=== PATIENT | male | born 1960 | race African-American/Black ===

== ENCOUNTER 2019-04-22 10:26 | Inpatient (IN) | payer OTHER ==
[2019-04-22 11:21] VITALS: BMI 28.3
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
[2019-04-22] MEDS ORDERED: IBUPROFEN 400 MG TABLET (FP) PO PRN (12:10)
[2019-04-22] MEDS ORDERED: MAGNESIUM HYDROX 2400MG/30ML ORAL SUSPENSION 30 ML CUP PO PRN (12:10)
[2019-04-22] MEDS ORDERED: MAG HYDROX/AL HYDROX/SIMETH 30 ML UNIT-DOSE CUP PO PRN (12:10)
[2019-04-22] MEDS ORDERED: ACETAMINOPHEN 325 MG TABLET (FP) PO PRN (12:10)
[2019-04-22] MEDS ORDERED: METHOCARBAMOL 500 MG TABLET PO PRN (12:10)
[2019-04-22] MEDS ORDERED: BISMUTH SUBSALICYLATE 524 MG/30 ML UD PO PRN (12:10)
[2019-04-22] MEDS ORDERED: hydrOXYzine PAMOATE 25 MG CAPSULE (FP) PO PRN (12:10)
[2019-04-22] MEDS ORDERED: MAGNESIUM CITRATE 300 ML BOTTLE PO PRN (12:10)
[2019-04-22] MEDS ORDERED: chlordiazePOXIDE HCL 25 MG CAPSULE PO PRN (12:10)
[2019-04-22] MEDS ORDERED: MENTHOL/PHENOL 1 EACH UD MM PRN (12:10)
[2019-04-22] MEDS ORDERED: ALBUTEROL SO4 8 GM HFA INHALER IH PRN (12:15)
[2019-04-22] MEDS ORDERED: chlordiazePOXIDE HCL 25 MG CAPSULE PO ONE (13:00)
[2019-04-22] MEDS: amLODIPine BESYLATE 10 MG TABLET (FP) PO SCH (13:31)
[2019-04-22] MEDS: chlordiazePOXIDE HCL 25 MG CAPSULE PO SCH ×2 (17:34→22:37)
[2019-04-22] MEDS: ATORVASTATIN CA 10 MG TABLET (FP) PO SCH (22:36)
[2019-04-22] MEDS: THIAMINE HCL 100 MG TABLET (FP) PO SCH (22:36)
[2019-04-22] MEDS: MELATONIN 5 MG TABLETS PO PRN (22:37)
[2019-04-22] MEDS: BUDESONIDE/FORMETEROL FUMARATE 80/4.5 mcg INHALER IH SCH (22:37)
[2019-04-23] MEDS: chlordiazePOXIDE HCL 25 MG CAPSULE PO SCH ×4 (05:55→22:33)
[2019-04-23 09:17] LABS: HEMATOCRIT 42.6 % (35.4-49); HEMOGLOBIN 15.1 GM/dL (11.7-16.9); MCH 33.4 pg (25.7-33.7); MCHC 35.4 g/dl (32.0-35.9); MEAN CELL VOLUME 94.4 fl (80-96); MEAN PLT VOLUME 7.7 fl (7.5-11.1); PLATELET COUNT 432 K/MM3 (134-434); RBC 4.51 M/mm3 (4.00-5.60); RDW 14.7 % (11.9-15.9); WHITE BLOOD COUNT 6.9 K/mm3 (4.0-10.0)
[2019-04-23 09:29] LABS: BILIRUBIN,TOTAL 0.6 mg/dL (0.2-1); BLOOD UREA NITROGEN 16.7 mg/dL (7-18); CALCIUM 9.3 mg/dL (8.5-10.1); CREATININE 0.9 mg/dL (0.55-1.3); POTASSIUM 4.5 mmol/L (3.5-5.1); TOT PROT 7.5 g/dl (6.4-8.2)
[2019-04-23] MEDS: amLODIPine BESYLATE 10 MG TABLET (FP) PO SCH (10:52)
[2019-04-23] MEDS: PRENATAL VITAMINS W/ FOLIC ACID TABLET (FP) PO SCH (10:52)
[2019-04-23] MEDS: NICOTINE POLACRILEX 4 MG GUM BUC PRN ×2 (10:54→13:08)
[2019-04-23] MEDS: BUDESONIDE/FORMETEROL FUMARATE 80/4.5 mcg INHALER IH SCH ×2 (11:20→22:35)
--- NOTE | 2019-04-23 13:16 | PN ---
S CIWA - CIWA Score Nausea/Vomitin-Mild Nausea/No Vomiting Muscle Tremors: 4-Moderate,w/Arms Extend Anxiety: 4-Mod. Anxious/Guarded Agitation: 3 Paroxysmal Sweats: 3 Orientation: 0-Oriented Tacttile Disturbances: 0-None Auditory Disturbances: 0-None Visual Disturbances: 0-None Headache: 0-None Present CIWA-Ar Total Score: 15 BHS Progress Note (SOAP) Subjective: Sweating, chills Objective: 04/23/19 13:14 Last Vital Signs Temp Pulse Resp BP Pulse Ox 97.7 F 68 18 141/85 04/23/19 09:31 04/23/19 09:31 04/23/19 09:31 04/23/19 09:31 Elevated b/p: has htn (on med) Laboratory Tests 04/23/19 04/23/19 04/23/19 07:50 07:50 07:50 WBC 6.9 RBC 4.51 Hgb 15.1 Hct 42.6 MCV 94.4 MCH 33.4 MCHC 35.4 RDW 14.7 Plt Count 432 D MPV 7.7 Sodium 138 Potassium 4.5 Chloride 106 Carbon Dioxide 27 Anion Gap 6 L BUN 16.7 Creatinine 0.9 Est GFR (CKD-EPI)AfAm 109.50 Est GFR (CKD-EPI)NonAf 94.48 Random Glucose 97 Calcium 9.3 Total Bilirubin 0.6 AST 20 ALT 25 Alkaline Phosphatase 59 Total Protein 7.5 Albumin 4.0 RPR Titer Nonreactive HIV 1&2 Antibody Screen HIV P24 Antigen 04/23/19 07:50 WBC RBC Hgb Hct MCV MCH MCHC RDW Plt Count MPV Sodium Potassium Chloride Carbon Dioxide Anion Gap BUN Creatinine Est GFR (CKD-EPI)AfAm Est GFR (CKD-EPI)NonAf Random Glucose Calcium Total Bilirubin AST ALT Alkaline Phosphatase Total Protein Albumin RPR Titer HIV 1&2 Antibody Screen Negative HIV P24 Antigen Negative Labs reviewed Assessment: 04/23/19 13:15 Withdrawal sxs Plan: Continue detox Encouraged PO water intake HTN: continue norvasc, encouraged low sodium diet, monitor b/p
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
[2019-04-23] MEDS: ACETAMINOPHEN 325 MG TABLET (FP) PO PRN (18:00)
[2019-04-23] MEDS: QUEtiapine FUMARATE 100 MG TABLET (FP) PO SCH (22:33)
[2019-04-23] MEDS: ATORVASTATIN CA 10 MG TABLET (FP) PO SCH (22:33)
[2019-04-23] MEDS: THIAMINE HCL 100 MG TABLET (FP) PO SCH (22:33)
[2019-04-23] MEDS: MELATONIN 5 MG TABLETS PO PRN (22:35)
[2019-04-24] MEDS: chlordiazePOXIDE HCL 25 MG CAPSULE PO SCH ×4 (05:48→22:28)
[2019-04-24] MEDS: BUDESONIDE/FORMETEROL FUMARATE 80/4.5 mcg INHALER IH SCH ×2 (10:40→22:31)
[2019-04-24] MEDS: PRENATAL VITAMINS W/ FOLIC ACID TABLET (FP) PO SCH (10:40)
[2019-04-24] MEDS: amLODIPine BESYLATE 10 MG TABLET (FP) PO SCH (10:40)
--- NOTE | 2019-04-24 11:04 | EKG ---
Test Reason : Blood Pressure : / mmHG Vent. Rate : 081 BPM Atrial Rate : 081 BPM P-R Int : 138 ms QRS Dur : 080 ms QT Int : 346 ms P-R-T Axes : 082 056 041 degrees QTc Int : 401 ms NORMAL SINUS RHYTHM RIGHT ATRIAL ENLARGEMENT VOLTAGE CRITERIA FOR LEFT VENTRICULAR HYPERTROPHY ABNORMAL ECG NO PREVIOUS ECGS AVAILABLE Confirmed by MONIQUE GUZMÁN MD ([id number]) on 04/24/2019 11:04:15 AM Referred By: Confirmed By:MONIQUE GUZMÁN MD
--- NOTE | 2019-04-24 11:16 | PN ---
[facility] CIWA - CIWA Score Nausea/Vomitin-Mild Nausea/No Vomiting Muscle Tremors: 1-None Visible, but [place] Anxiety: 2 Agitation: 2 Paroxysmal Sweats: No Perspiration Orientation: 0-Oriented Tacttile Disturbances: 1-Very Mild Itch/Numbness Auditory Disturbances: 0-None Visual Disturbances: 0-None Headache: 1-Very Mild CIWA-Ar Total Score: 8 S Progress Note (SOAP) Subjective: alert,irritable,anxious,interrupted sleep,non compliance ,has problem with the staff,being contracted by counselor Objective: 04/24/19 11:13 Vital Signs Temperature 97.2 F L 04/24/19 10:58 Pulse Rate 92 H 04/24/19 10:58 Respiratory Rate 18 04/24/19 10:58 Blood Pressure 139/88 04/24/19 10:58 O2 Sat by Pulse Oximetry (%) 04/24/19 11:13 Laboratory Last Values WBC 6.9 K/mm3 (4.0-10.0) 04/23/19 07:50 RBC 4.51 M/mm3 (4.00-5.60) 04/23/19 07:50 Hgb 15.1 GM/dL (11.7-16.9) 04/23/19 07:50 Hct 42.6 % (35.4-49) 04/23/19 07:50 MCV 94.4 fl (80-96) 04/23/19 07:50 MCH 33.4 pg (25.7-33.7) 04/23/19 07:50 MCHC 35.4 g/dl (32.0-35.9) 04/23/19 07:50 RDW 14.7 % (11.9-15.9) 04/23/19 07:50 Plt Count 432 K/MM3 (134-434) D 04/23/19 07:50 MPV 7.7 fl (7.5-11.1) 04/23/19 07:50 Sodium 138 mmol/L (136-145) 04/23/19 07:50 Potassium 4.5 mmol/L (3.5-5.1) 04/23/19 07:50 Chloride 106 mmol/L (98-107) 04/23/19 07:50 Carbon Dioxide 27 mmol/L (21-32) 04/23/19 07:50 Anion Gap 6 MMOL/L (8-16) L 04/23/19 07:50 BUN 16.7 mg/dL (7-18) 04/23/19 07:50 Creatinine 0.9 mg/dL (0.55-1.3) 04/23/19 07:50 Est GFR (CKD-EPI)AfAm 109.50 04/23/19 07:50 Est GFR (CKD-EPI)NonAf 94.48 04/23/19 07:50 Random Glucose 97 mg/dL (74-106) 04/23/19 07:50 Calcium 9.3 mg/dL (8.5-10.1) 04/23/19 07:50 Total Bilirubin 0.6 mg/dL (0.2-1) 04/23/19 07:50 AST 20 U/L (15-37) 04/23/19 07:50 ALT 25 U/L (13-61) 04/23/19 07:50 Alkaline Phosphatase 59 U/L (45-117) 04/23/19 07:50 Total Protein 7.5 g/dl (6.4-8.2) 04/23/19 07:50 Albumin 4.0 g/dl (3.4-5.0) 04/23/19 07:50 RPR Titer Nonreactive (NONREACTIVE) 04/23/19 07:50 HIV 1&2 Antibody Screen Negative 04/23/19 07:50 HIV P24 Antigen Negative 04/23/19 07:50 Assessment: 04/24/19 11:13 withdrawal symptom Plan: continue detox librium regimen, patient agreed to compliance with unit rule and medication,agreed to go to [address] [place] [address] for continuation of care, renee bandage left knee in day time for arthritis left knee
[2019-04-24] MEDS: ACETAMINOPHEN 325 MG TABLET (FP) PO PRN (18:46)
[2019-04-24] MEDS: QUEtiapine FUMARATE 100 MG TABLET (FP) PO SCH (22:27)
[2019-04-24] MEDS: MELATONIN 5 MG TABLETS PO PRN (22:28)
[2019-04-24] MEDS: THIAMINE HCL 100 MG TABLET (FP) PO SCH (22:28)
[2019-04-24] MEDS: ATORVASTATIN CA 10 MG TABLET (FP) PO SCH (22:28)
[2019-04-25] MEDS ORDERED: chlordiazePOXIDE HCL 10 MG CAPSULE PO PRN
[2019-04-25] MEDS: chlordiazePOXIDE HCL 10 MG CAPSULE PO SCH ×4 (05:57→22:35)
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
[2019-04-25] MEDS: PRENATAL VITAMINS W/ FOLIC ACID TABLET (FP) PO SCH (10:38)
[2019-04-25] MEDS: BUDESONIDE/FORMETEROL FUMARATE 80/4.5 mcg INHALER IH SCH ×2 (10:38→22:35)
[2019-04-25] MEDS: amLODIPine BESYLATE 10 MG TABLET (FP) PO SCH (10:38)
[2019-04-25] MEDS: NICOTINE POLACRILEX 4 MG GUM BUC PRN ×2 (11:02→17:32)
[2019-04-25] MEDS: ACETAMINOPHEN 325 MG TABLET (FP) PO PRN (17:33)
[2019-04-25] MEDS: ATORVASTATIN CA 10 MG TABLET (FP) PO SCH (22:36)
[2019-04-25] MEDS: THIAMINE HCL 100 MG TABLET (FP) PO SCH (22:36)
[2019-04-25] MEDS: QUEtiapine FUMARATE 100 MG TABLET (FP) PO SCH (22:36)
[2019-04-26] MEDS: chlordiazePOXIDE HCL 10 MG CAPSULE PO SCH ×3 (06:11→17:32)
[2019-04-26] MEDS: amLODIPine BESYLATE 10 MG TABLET (FP) PO SCH (10:05)
[2019-04-26] MEDS: BUDESONIDE/FORMETEROL FUMARATE 80/4.5 mcg INHALER IH SCH ×2 (10:05→22:21)
[2019-04-26] MEDS: PRENATAL VITAMINS W/ FOLIC ACID TABLET (FP) PO SCH (10:05)
--- NOTE | 2019-04-26 13:58 | PN ---
S CIWA - CIWA Score Nausea/Vomitin-No Nausea/No Vomiting Muscle Tremors: 1-None Visible, but [place] Anxiety: 1-Mildly Anxious Agitation: 0-Normal Activity Paroxysmal Sweats: No Perspiration Orientation: 0-Oriented Tacttile Disturbances: 0-None Auditory Disturbances: 0-None Visual Disturbances: 0-None Headache: 0-None Present CIWA-Ar Total Score: 2 BHS Progress Note (SOAP) Subjective: 58 years old male admitted on 04/22/19 for alcohol withdrawal sx management treated with librium detox regimen feeling better today less tremor mild anxiety Objective: 04/26/19 14:03 Vital Signs Temperature 95.9 F L 04/26/19 13:20 Pulse Rate 64 04/26/19 13:20 Respiratory Rate 18 04/26/19 13:20 Blood Pressure 126/84 04/26/19 13:20 O2 Sat by Pulse Oximetry (%) Laboratory Last Values WBC 6.9 K/mm3 (4.0-10.0) 04/23/19 07:50 RBC 4.51 M/mm3 (4.00-5.60) 04/23/19 07:50 Hgb 15.1 GM/dL (11.7-16.9) 04/23/19 07:50 Hct 42.6 % (35.4-49) 04/23/19 07:50 MCV 94.4 fl (80-96) 04/23/19 07:50 MCH 33.4 pg (25.7-33.7) 04/23/19 07:50 MCHC 35.4 g/dl (32.0-35.9) 04/23/19 07:50 RDW 14.7 % (11.9-15.9) 04/23/19 07:50 Plt Count 432 K/MM3 (134-434) D 04/23/19 07:50 MPV 7.7 fl (7.5-11.1) 04/23/19 07:50 Sodium 138 mmol/L (136-145) 04/23/19 07:50 Potassium 4.5 mmol/L (3.5-5.1) 04/23/19 07:50 Chloride 106 mmol/L (98-107) 04/23/19 07:50 Carbon Dioxide 27 mmol/L (21-32) 04/23/19 07:50 Anion Gap 6 MMOL/L (8-16) L 04/23/19 07:50 BUN 16.7 mg/dL (7-18) 04/23/19 07:50 Creatinine 0.9 mg/dL (0.55-1.3) 04/23/19 07:50 Est GFR (CKD-EPI)AfAm 109.50 04/23/19 07:50 Est GFR (CKD-EPI)NonAf 94.48 04/23/19 07:50 Random Glucose 97 mg/dL (74-106) 04/23/19 07:50 Calcium 9.3 mg/dL (8.5-10.1) 04/23/19 07:50 Total Bilirubin 0.6 mg/dL (0.2-1) 04/23/19 07:50 AST 20 U/L (15-37) 04/23/19 07:50 ALT 25 U/L (13-61) 04/23/19 07:50 Alkaline Phosphatase 59 U/L (45-117) 04/23/19 07:50 Total Protein 7.5 g/dl (6.4-8.2) 04/23/19 07:50 Albumin 4.0 g/dl (3.4-5.0) 04/23/19 07:50 RPR Titer Nonreactive (NONREACTIVE) 04/23/19 07:50 HIV 1&2 Antibody Screen Negative 04/23/19 07:50 HIV P24 Antigen Negative 04/23/19 07:50 lab noted Assessment: 04/26/19 14:04 alcohol withdrawal sx Plan: continue librium detox regimen
[2019-04-26] MEDS: NICOTINE POLACRILEX 4 MG GUM BUC PRN (17:34)
[2019-04-26] MEDS: QUEtiapine FUMARATE 100 MG TABLET (FP) PO SCH (22:20)
[2019-04-26] MEDS: THIAMINE HCL 100 MG TABLET (FP) PO SCH (22:20)
[2019-04-26] MEDS: ATORVASTATIN CA 10 MG TABLET (FP) PO SCH (22:21)
[2019-04-26] MEDS: MELATONIN 5 MG TABLETS PO PRN (22:21)
[2019-04-27] MEDS ORDERED: chlordiazePOXIDE HCL 10 MG CAPSULE PO ONE (05:00)
[2019-04-27 09:16] VITALS: BP 126/64; PULSE 77; TEMP 97.1
--- NOTE | 2019-04-27 09:18 | DS ---
[facility] Detox Discharge Summary Admission Date: 04/22/19 Discharge Date: 04/27/19 - History Present History: Alcohol Dependence Additional Comments: 58 years old male admitted on 04/22/19 for alcohol withdrawal sx management treated with librium detox regimen patient tolerated well patient is alert oriented x 3 speech clearly coherently cardia [id number] regular rate rhythm respiratory clear lung bilaterally on auscultation skin warm dry - Physical Exam Results Vital Signs: Vital Signs Temperature 97.1 F L 04/27/19 09:13 Pulse Rate 77 04/27/19 09:13 Respiratory Rate 18 04/27/19 09:13 Blood Pressure 126/64 04/27/19 09:13 O2 Sat by Pulse Oximetry (%) Pertinent Admission Physical Exam Findings: alcohol withdrawal sx Laboratory Last Values WBC 6.9 K/mm3 (4.0-10.0) 04/23/19 07:50 RBC 4.51 M/mm3 (4.00-5.60) 04/23/19 07:50 Hgb 15.1 GM/dL (11.7-16.9) 04/23/19 07:50 Hct 42.6 % (35.4-49) 04/23/19 07:50 MCV 94.4 fl (80-96) 04/23/19 07:50 MCH 33.4 pg (25.7-33.7) 04/23/19 07:50 MCHC 35.4 g/dl (32.0-35.9) 04/23/19 07:50 RDW 14.7 % (11.9-15.9) 04/23/19 07:50 Plt Count 432 K/MM3 (134-434) D 04/23/19 07:50 MPV 7.7 fl (7.5-11.1) 04/23/19 07:50 Sodium 138 mmol/L (136-145) 04/23/19 07:50 Potassium 4.5 mmol/L (3.5-5.1) 04/23/19 07:50 Chloride 106 mmol/L (98-107) 04/23/19 07:50 Carbon Dioxide 27 mmol/L (21-32) 04/23/19 07:50 Anion Gap 6 MMOL/L (8-16) L 04/23/19 07:50 BUN 16.7 mg/dL (7-18) 04/23/19 07:50 Creatinine 0.9 mg/dL (0.55-1.3) 04/23/19 07:50 Est GFR (CKD-EPI)AfAm 109.50 04/23/19 07:50 Est GFR (CKD-EPI)NonAf 94.48 04/23/19 07:50 Random Glucose 97 mg/dL (74-106) 04/23/19 07:50 Calcium 9.3 mg/dL (8.5-10.1) 04/23/19 07:50 Total Bilirubin 0.6 mg/dL (0.2-1) 04/23/19 07:50 AST 20 U/L (15-37) 04/23/19 07:50 ALT 25 U/L (13-61) 04/23/19 07:50 Alkaline Phosphatase 59 U/L (45-117) 04/23/19 07:50 Total Protein 7.5 g/dl (6.4-8.2) 04/23/19 07:50 Albumin 4.0 g/dl (3.4-5.0) 04/23/19 07:50 RPR Titer Nonreactive (NONREACTIVE) 04/23/19 07:50 HIV 1&2 Antibody Screen Negative 04/23/19 07:50 HIV P24 Antigen Negative 04/23/19 07:50 lab noted - Treatment Hospital Course: Detox Protocol Followed, Detoxed Safely, Responded well, Discharged Condition Good, Rehab Referral Accepted Patient has Accepted [facility] Referral [facility] - Medication Discharge Medications: Ambulatory Orders Albuterol Sulfate Inhaler - [Ventolin Hfa Inhaler -] 1 inh PO Q4H PRN 04/22/19 Amlodipine Besylate [Norvasc -] 10 mg PO DAILY 04/22/19 Atorvastatin Ca [Lipitor] 10 mg PO HS 04/22/19 Budesonide/Formeterol Fumarate [SYMBICORT 80/4.5mcg -] 1 inh PO BID 04/22/19 Cyanocobalamin [Vitamin B12 -] 1,000 mcg PO DAILY 04/22/19 Folic Acid 1 mg PO DAILY 04/22/19 Quetiapine Fumarate [Seroquel -] 100 mg PO DAILY 04/22/19 - Diagnosis (1) Substance induced mood disorder Current Visit: Yes Status: Suspected (2) Alcohol dependence with withdrawal, uncomplicated Current Visit: Yes Status: Acute (3) Dyslipidemia Current Visit: Yes Status: Chronic (4) HTN (hypertension) Current Visit: Yes Status: Chronic Qualifiers: Hypertension type: essential hypertension Qualified Code(s): I10 - Essential (primary) hypertension (5) Nicotine dependence Current Visit: Yes Status: Acute Qualifiers: Nicotine product type: cigarettes Substance use status: in withdrawal Qualified Code(s): F17.213 - Nicotine dependence, cigarettes, with withdrawal (6) PPD positive, treated Current Visit: Yes Status: Resolved - AMA Did Patient Leave Against Medical Advice: No CIWA Score - CIWA Score Nausea/Vomitin-No Nausea/No Vomiting Muscle Tremors: 1-None Visible, but [place] Anxiety: 0-No Anxiety, at Ease Agitation: 0-Normal Activity Paroxysmal Sweats: No Perspiration Orientation: 0-Oriented Tacttile Disturbances: 0-None Auditory Disturbances: 0-None Visual Disturbances: 0-None Headache: 0-None Present CIWA-Ar Total Score: 1
[2019-04-27] MEDS: PRENATAL VITAMINS W/ FOLIC ACID TABLET (FP) PO SCH (10:19)
[2019-04-27] MEDS: amLODIPine BESYLATE 10 MG TABLET (FP) PO SCH (10:19)
[2019-04-27] MEDS: BUDESONIDE/FORMETEROL FUMARATE 80/4.5 mcg INHALER IH SCH (10:19)
[2019-04-27] MEDS: ACETAMINOPHEN 325 MG TABLET (FP) PO PRN (10:52)
== END 2019-04-27 12:33 | disposition other institution (70) | DRG 774 ==
LOC: YASAS 10:26 → Y6N 12:32 → Y3N 04-24 10:53
PROVIDERS: ADMIT Allergy & Immunology; ATTEND Allergy & Immunology
PROC: HZ2ZZZZ Detoxification Services for Substance Abuse Treatment (ICD-10-PCS; principal; 2019-04-22)
DX: F10.230 Alcohol dependence with withdrawal, uncomplicated (principal); F14.20 Cocaine dependence, uncomplicated; F12.20 Cannabis dependence, uncomplicated; F17.213 Nicotine dependence, cigarettes, with withdrawal; F19.282 Other psychoactive substance dependence with psychoactive substance-induced sleep disorder; F19.24 Other psychoactive substance dependence with psychoactive substance-induced mood disorder; F31.9 Bipolar disorder, unspecified; F25.9 Schizoaffective disorder, unspecified; E78.5 Hyperlipidemia, unspecified; I10 Essential (primary) hypertension; E11.9 Type 2 diabetes mellitus without complications; D17.1 Benign lipomatous neoplasm of skin and subcutaneous tissue of trunk; N40.0 Benign prostatic hyperplasia without lower urinary tract symptoms; J45.909 Unspecified asthma, uncomplicated; G56.03 Carpal tunnel syndrome, bilateral upper limbs; R76.11 Nonspecific reaction to tuberculin skin test without active tuberculosis; Z86.69 Personal history of other diseases of the nervous system and sense organs; Z88.0 Allergy status to penicillin; Z88.8 Allergy status to other drugs, medicaments and biological substances; Z59.0 Homelessness
CPT/HCPCS: 36415; 71046-TC-FY; 80053; 85027; 86593; 87389; 93005; 93010

== ENCOUNTER 2019-04-27 12:48 | Inpatient (IN) | payer OTHER ==
--- NOTE | 2019-04-27 09:21 | HP ---
[facility] Rehab Assess/Revision - Admission History Admitted to Rehab from: [facility] Date of Admission to Rehab: 04/27/19 - Findings Detox History & Physical reviewed: Yes Concur with findings: Yes Comments/Additional Findings: transferred from detox to rehab admission as per protocol Inpatient Rehab Admission - Rehab Decision to Admit Inpatient rehab admission?: Yes - Initial Determination Are CD services needed?: Yes Free of communicable disease: Yes Not in need of hospitalization: Yes - Rehab Admission Criteria Previous failed treatment: Yes Poor recovery environment: Yes Comorbidities: Yes Lacks judgement: Yes Patient is meeting Inpatient Rehab admission criteria:: Yes
[~2019-04-27 12:48] MED LIST: ALBUTEROL SO4 8 GM HFA INHALER IH PRN; IBUPROFEN 400 MG TABLET (FP) PO PRN; LOPERAMIDE HCL 2 MG CAPSULE PO PRN; MAG HYDROX/AL HYDROX/SIMETH 30 ML UNIT-DOSE CUP PO PRN; MAGNESIUM CITRATE 300 ML BOTTLE PO PRN; MAGNESIUM HYDROX 2400MG/30ML ORAL SUSPENSION 30 ML CUP PO PRN; MENTHOL/PHENOL 1 EACH UD MM PRN; NICOTINE 21 MG/24 HOURS TOPICAL PATCH TD PRN; P-EPHED 60MG/TRIPROLIDI 2.5MG TABLET PO PRN; guaiFENesin 200 MG/10 ML 10 ML UNIT-DOSE CUPS PO PRN
[2019-04-27] MEDS: PRENATAL VITAMINS W/ FOLIC ACID TABLET (FP) PO SCH (14:52)
[2019-04-27] MEDS: MELATONIN 5 MG TABLETS PO PRN (21:06)
[2019-04-27] MEDS: BUDESONIDE/FORMETEROL FUMARATE 80/4.5 mcg INHALER IH SCH (21:06)
[2019-04-27] MEDS: THIAMINE HCL 100 MG TABLET (FP) PO SCH (21:06)
[2019-04-27] MEDS: ATORVASTATIN CA 10 MG TABLET (FP) PO SCH (21:06)
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
[2019-04-28] MEDS ORDERED: QUEtiapine FUMARATE 100 MG TABLET (FP) PO SCH ×2 (10:00→22:00)
[2019-04-28] MEDS: amLODIPine BESYLATE 10 MG TABLET (FP) PO SCH (10:04)
[2019-04-28] MEDS: PRENATAL VITAMINS W/ FOLIC ACID TABLET (FP) PO SCH (10:04)
[2019-04-28] MEDS: BUDESONIDE/FORMETEROL FUMARATE 80/4.5 mcg INHALER IH SCH ×2 (10:05→21:07)
[2019-04-28] MEDS: NICOTINE POLACRILEX 4 MG GUM BC PRN ×2 (10:10→21:10)
--- NOTE | 2019-04-28 13:52 | PN ---
[facility] Progress Note Note: Pt is a 58 y/o male admitted to rehab after completing detox on . Pt is c/o dysuria,pressure on urination,denies burning or acute pain. denies blood in urine.Pt reports urine comes out in sprinkles. Pt reports he has a primary care provider at [facility] who referred him to urologist at [facility] and was scheduled for biopsy twice and pt states he missed those appointments states Denies nausea,vomiting,constipation or diarrhea. Pt reports was given something for the prostrate but never took it. Vital Signs - 24 hr 04/27/19 04/28/19 04/28/19 17:50 03:30 07:18 Temperature 98.0 F 97.8 F Pulse Rate 93 H 86 Respiratory 18 18 18 Rate Blood Pressure 130/76 142/79 A/P Hx BPH Consult with Resident Dr. Isabell Rosas to see patient. Discussed with Dr. Rosas pt could be started on Flomax and monitored for symptom relief. D/w pt will follow up with primary care provider and reschedule appointment with urology for biopsy as recommended after rehab treatment.
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
[2019-04-28] MEDS ORDERED: TAMSULOSIN HCL 0.4 MG CAP PO ONE (14:36)
[2019-04-28] MEDS ORDERED: SUVOREXANT 10 MG TABLET PO PRN (15:12)
[2019-04-28] MEDS: THIAMINE HCL 100 MG TABLET (FP) PO SCH (21:07)
[2019-04-28] MEDS: ATORVASTATIN CA 10 MG TABLET (FP) PO SCH (21:07)
[2019-04-28] MEDS: MELATONIN 5 MG TABLETS PO PRN (21:08)
[2019-04-28] MEDS: QUEtiapine FUMARATE 100 MG TABLET (FP) PO SCH (21:09)
[2019-04-29] MEDS: amLODIPine BESYLATE 10 MG TABLET (FP) PO SCH (09:33)
[2019-04-29] MEDS: TAMSULOSIN HCL 0.4 MG CAP PO SCH (09:33)
[2019-04-29] MEDS: PRENATAL VITAMINS W/ FOLIC ACID TABLET (FP) PO SCH (09:33)
[2019-04-29] MEDS: ACETAMINOPHEN 325 MG TABLET (FP) PO PRN ×2 (09:34→15:21)
[2019-04-29] MEDS: BUDESONIDE/FORMETEROL FUMARATE 80/4.5 mcg INHALER IH SCH ×2 (09:36→21:06)
[2019-04-29] MEDS: THIAMINE HCL 100 MG TABLET (FP) PO SCH (21:05)
[2019-04-29] MEDS: QUEtiapine FUMARATE 100 MG TABLET (FP) PO SCH (21:05)
[2019-04-29] MEDS: ATORVASTATIN CA 10 MG TABLET (FP) PO SCH (21:05)
[2019-04-30] MEDS: NICOTINE POLACRILEX 4 MG GUM BC PRN ×2 (06:16→21:08)
[2019-04-30] MEDS: TAMSULOSIN HCL 0.4 MG CAP PO SCH (08:33)
[2019-04-30] MEDS: amLODIPine BESYLATE 10 MG TABLET (FP) PO SCH (10:07)
[2019-04-30] MEDS: PRENATAL VITAMINS W/ FOLIC ACID TABLET (FP) PO SCH (10:07)
[2019-04-30] MEDS: BUDESONIDE/FORMETEROL FUMARATE 80/4.5 mcg INHALER IH SCH ×2 (10:08→21:06)
[2019-04-30] MEDS: ACETAMINOPHEN 325 MG TABLET (FP) PO PRN (13:06)
[2019-04-30] MEDS: ATORVASTATIN CA 10 MG TABLET (FP) PO SCH (21:06)
[2019-04-30] MEDS: THIAMINE HCL 100 MG TABLET (FP) PO SCH (21:06)
[2019-04-30] MEDS: QUEtiapine FUMARATE 100 MG TABLET (FP) PO SCH (21:06)
[2019-04-30] MEDS: MELATONIN 5 MG TABLETS PO PRN (21:07)
--- NOTE | 2019-05-01 07:46 | PN ---
Teaching Attending Note Name of Resident: Isabell Rosas ATTENDING PHYSICIAN STATEMENT I saw and evaluated the patient. I reviewed the resident's note and discussed the case with the resident. I agree with the resident's findings and plan as documented. SUBJECTIVE: Agree with subjective findings of resident OBJECTIVE: Agree with objective findings of resident ASSESSMENT AND PLAN: Agree with plan of follow up with urology upon discharge and current therapy. Dr. Siegel
[2019-05-01] MEDS: amLODIPine BESYLATE 10 MG TABLET (FP) PO SCH (09:57)
[2019-05-01] MEDS: PRENATAL VITAMINS W/ FOLIC ACID TABLET (FP) PO SCH (09:57)
[2019-05-01] MEDS: TAMSULOSIN HCL 0.4 MG CAP PO SCH (09:57)
[2019-05-01] MEDS: BUDESONIDE/FORMETEROL FUMARATE 80/4.5 mcg INHALER IH SCH ×2 (09:57→21:08)
[2019-05-01] MEDS: ATORVASTATIN CA 10 MG TABLET (FP) PO SCH (21:09)
[2019-05-01] MEDS: QUEtiapine FUMARATE 100 MG TABLET (FP) PO SCH (21:09)
[2019-05-01] MEDS: THIAMINE HCL 100 MG TABLET (FP) PO SCH (21:09)
[2019-05-01] MEDS: NICOTINE POLACRILEX 4 MG GUM BC PRN (21:10)
[2019-05-01] MEDS: MELATONIN 5 MG TABLETS PO PRN (21:10)
[2019-05-01] MEDS ORDERED: SUVOREXANT 10 MG TABLET PO PRN (22:00)
[2019-05-02] MEDS: PRENATAL VITAMINS W/ FOLIC ACID TABLET (FP) PO SCH (10:32)
[2019-05-02] MEDS: TAMSULOSIN HCL 0.4 MG CAP PO SCH (10:32)
[2019-05-02] MEDS: amLODIPine BESYLATE 10 MG TABLET (FP) PO SCH (10:32)
[2019-05-02] MEDS: BUDESONIDE/FORMETEROL FUMARATE 80/4.5 mcg INHALER IH SCH ×2 (10:32→21:03)
[2019-05-02] MEDS: ATORVASTATIN CA 10 MG TABLET (FP) PO SCH (21:03)
[2019-05-02] MEDS: QUEtiapine FUMARATE 100 MG TABLET (FP) PO SCH (21:03)
[2019-05-02] MEDS: THIAMINE HCL 100 MG TABLET (FP) PO SCH (21:03)
[2019-05-02] MEDS: NICOTINE POLACRILEX 4 MG GUM BC PRN (21:04)
[2019-05-03] MEDS: TAMSULOSIN HCL 0.4 MG CAP PO SCH (10:10)
[2019-05-03] MEDS: amLODIPine BESYLATE 10 MG TABLET (FP) PO SCH (10:10)
[2019-05-03] MEDS: PRENATAL VITAMINS W/ FOLIC ACID TABLET (FP) PO SCH (10:10)
[2019-05-03] MEDS: BUDESONIDE/FORMETEROL FUMARATE 80/4.5 mcg INHALER IH SCH ×2 (10:11→21:07)
[2019-05-03] MEDS: NICOTINE POLACRILEX 4 MG GUM BC PRN ×3 (10:12→21:07)
[2019-05-03] MEDS: ACETAMINOPHEN 325 MG TABLET (FP) PO PRN (17:51)
[2019-05-03] MEDS: QUEtiapine FUMARATE 100 MG TABLET (FP) PO SCH (21:06)
[2019-05-03] MEDS: THIAMINE HCL 100 MG TABLET (FP) PO SCH (21:06)
[2019-05-03] MEDS: ATORVASTATIN CA 10 MG TABLET (FP) PO SCH (21:06)
[2019-05-03] MEDS: MELATONIN 5 MG TABLETS PO PRN (21:07)
[2019-05-04] MEDS: BUDESONIDE/FORMETEROL FUMARATE 80/4.5 mcg INHALER IH SCH ×2 (10:13→21:16)
[2019-05-04] MEDS: PRENATAL VITAMINS W/ FOLIC ACID TABLET (FP) PO SCH (10:13)
[2019-05-04] MEDS: TAMSULOSIN HCL 0.4 MG CAP PO SCH (10:14)
[2019-05-04] MEDS: amLODIPine BESYLATE 10 MG TABLET (FP) PO SCH (10:14)
[2019-05-04] MEDS: MELATONIN 5 MG TABLETS PO PRN (21:16)
[2019-05-04] MEDS: ATORVASTATIN CA 10 MG TABLET (FP) PO SCH (21:16)
[2019-05-04] MEDS: THIAMINE HCL 100 MG TABLET (FP) PO SCH (21:16)
[2019-05-04] MEDS: QUEtiapine FUMARATE 100 MG TABLET (FP) PO SCH (21:16)
[2019-05-04] MEDS: NICOTINE POLACRILEX 4 MG GUM BC PRN (21:17)
[2019-05-05 06:52] VITALS: BP 131/80; PULSE 98; TEMP 97.2
--- NOTE | 2019-05-05 09:16 | DS ---
[facility] Rehab Discharge Summary - [facility] Rehab Discharge Summary Admission Date: 04/27/19 Discharge Date: 05/05/19 - History Present History: Alcohol dependence, Cannabis dependence, Cocaine dependence Additional Comments: Pt is a 58 y/o male with a hx of SEBAS admitted to rehab after detox completion on and discharging today. Pertinent Past History: Asthma HTN DM(no meds) HLD BPH Bipolar disorder - Discharge Physical Exam Vital Signs: Vital Signs Temperature 97.2 F L 05/05/19 06:51 Pulse Rate 98 H 05/05/19 06:51 Respiratory Rate 18 05/05/19 06:51 Blood Pressure 131/80 05/05/19 06:51 O2 Sat by Pulse Oximetry (%) General:Alert ox 3 oob ambulating with steady gait Angry, verbally abrasive and intimidating towards staff. Declined Mini P/E upon discharge. Pertinent Admission Physical Exam Findings: Unremarkable and unchanged from detox admission. - Treatment Discharge Condition: Discharge condition good Hospital Course: Rehabilitated safely and responded well CD aftercare referral accepted - Medication Discharge Medications: Ambulatory Orders Albuterol Sulfate Inhaler - [Ventolin Hfa Inhaler -] 1 inh PO Q4H PRN 04/22/19 Amlodipine Besylate [Norvasc -] 10 mg PO DAILY 04/22/19 Atorvastatin Ca [Lipitor] 10 mg PO HS 04/22/19 Budesonide/Formeterol Fumarate [SYMBICORT 80/4.5mcg -] 1 inh PO BID 04/22/19 Cyanocobalamin [Vitamin B12 -] 1,000 mcg PO DAILY 04/22/19 Folic Acid 1 mg PO DAILY 04/22/19 Quetiapine Fumarate [Seroquel -] 100 mg PO DAILY 04/22/19 - Medication-Assisted Treatment (MAT) Medication-Assisted Treatment (MAT): No - Discharge Instructions Diet, activity, other medical instructions: Diet:AMBER Activity: oob ad maribeth Other medical instructions:Follow up with primary care provider within 1 week after discharge. Call for appointment and follow up with urology specialist as was previously recommended by your PCP/specialist to [facility]. follow up with CD aftercare at [facility] recommendations as scheduled in discharge package. Pt reports he has own meds and expert medical writer called and confirmed from his [facility] pharmacy he has 3 refills on his meds to be picked up Pt states he will follow up with his primary care for further needs - Diagnosis (1) Alcohol dependence Current Visit: Yes Status: Chronic (2) Cannabis dependence Current Visit: Yes Status: Chronic (3) Cocaine dependence Current Visit: Yes Status: Chronic Qualifiers: Substance use status: uncomplicated Qualified Code(s): F14.20 - Cocaine dependence, uncomplicated (4) Nicotine dependence Current Visit: Yes Status: Chronic Qualifiers: Nicotine product type: cigarettes Substance use status: uncomplicated Qualified Code(s): F17.210 - Nicotine dependence, cigarettes, uncomplicated (5) BPH (benign prostatic hyperplasia) Current Visit: Yes Status: Chronic Qualifiers: Lower urinary tract symptom detail: unspecified (6) Dyslipidemia Current Visit: No Status: Chronic (7) HTN (hypertension) Current Visit: No Status: Chronic Qualifiers: Hypertension type: essential hypertension Qualified Code(s): I10 - Essential (primary) hypertension (8) Seizure disorder Current Visit: Yes Status: Suspected (9) Dysuria Current Visit: Yes Status: Acute (10) Prostatism Current Visit: Yes Status: Acute - Follow-up Referral Minutes to complete discharge: 15 - AMA Did Patient Leave Against Medical Advice: No Additional Comments: Pt became very angry, verbally aggressive, abrasive, cursing and intimidating when pt was sent to expert medical writer by the nurse(Ms Avery) for discharge planning meeting /focused P/E. Pt became very defensive and accusatory stating "no one did anything for me, why are you asking me all these questions? Give me my metro card and my papers. I don't want you to touch me"(when Explained to patient I needed to do a quick discharge check up-listen to his heart, lungs,abdomen and feet exams). Pt was directed to see the counselor for metro card but he continued to curse at this expert medical writer insisting to be given transportation card by this expert medical writer. Pt has a past hx of anger and rage towards staff.
== END 2019-05-05 09:25 | disposition home or self-care (01) | DRG 772 ==
LOC: YASAS 12:48 → Y5N 12:49
PROVIDERS: ADMIT Neuromusculoskeletal Medicine & OMM; ATTEND Neuromusculoskeletal Medicine & OMM
PROC: HZ42ZZZ Group Counseling for Substance Abuse Treatment, Cognitive-Behavioral (ICD-10-PCS; principal; 2019-04-27)
DX: F10.20 Alcohol dependence, uncomplicated (principal); F14.20 Cocaine dependence, uncomplicated; F12.20 Cannabis dependence, uncomplicated; F17.210 Nicotine dependence, cigarettes, uncomplicated; G40.909 Epilepsy, unspecified, not intractable, without status epilepticus; I10 Essential (primary) hypertension; E11.9 Type 2 diabetes mellitus without complications; J45.909 Unspecified asthma, uncomplicated; N40.1 Benign prostatic hyperplasia with lower urinary tract symptoms; R30.0 Dysuria; R39.15 Urgency of urination; R35.1 Nocturia; D17.1 Benign lipomatous neoplasm of skin and subcutaneous tissue of trunk; G56.03 Carpal tunnel syndrome, bilateral upper limbs; Z88.0 Allergy status to penicillin; Z88.8 Allergy status to other drugs, medicaments and biological substances

== ENCOUNTER 2022-10-19 20:17 | Inpatient (IN) | payer OTHER ==
[2022-10-19 20:56] VITALS: BMI 35.2
[2022-10-19] MEDS ORDERED: NALOXONE HCL 0.4 MG/ML VIAL IM PRN (21:41)
[2022-10-19] MEDS ORDERED: DICYCLOMINE HCL 10 MG CAPSULE PO PRN (21:41)
[2022-10-19] MEDS ORDERED: MAG HYDROX/AL HYDROX/SIMETH 30 ML UNIT-DOSE CUP PO PRN (21:41)
[2022-10-19] MEDS ORDERED: POLYETHYLENE GLYCOL (HEALTHYLAX) 3350 17 GM PACKET PO PRN (21:41)
[2022-10-19] MEDS ORDERED: BENZOCAINE/MENTHOL (CHLORASEPTIC ) LOZENGE MM PRN (21:41)
[2022-10-19] MEDS ORDERED: LOPERAMIDE HCL 2 MG CAPSULE PO PRN (21:41)
[2022-10-19] MEDS ORDERED: BENZONATATE 200 MG CAPSULE PO PRN (21:41)
[2022-10-19] MEDS ORDERED: MAGNESIUM HYDROX 2400MG/30ML ORAL SUSPENSION 30 ML CUP PO PRN (21:41)
[2022-10-19] MEDS ORDERED: NALOXONE HCL (KLOXXADO) 8 MG SPRAY NS PRN (21:41)
[2022-10-19] MEDS ORDERED: ONDANSETRON *ODT* 4 MG TABLET SL PRN (21:41)
[2022-10-19] MEDS ORDERED: BISMUTH SUBSALICYLATE 524 MG/30 ML PO PRN (21:41)
[2022-10-19] MEDS ORDERED: IBUPROFEN 400 MG TABLET (FP) PO PRN (21:41)
[2022-10-19] MEDS ORDERED: guaiFENesin 600 MG TABLET.ER (FP) PO PRN (21:41)
[2022-10-19] MEDS ORDERED: ACETAMINOPHEN 325 MG TABLET (FP) PO PRN (21:41)
[2022-10-19] MEDS ORDERED: ALBUTEROL SO4 HFA INHALER IH PRN (21:45)
[2022-10-19] MEDS ORDERED: MELATONIN 5 MG TABLETS PO SCH (22:00)
[2022-10-20] MEDS: THIAMINE HCL 100 MG TABLET (FP) PO SCH ×2 (03:20→22:26)
[2022-10-20] MEDS ORDERED: ALBUTEROL SO4 HFA INHALER IH PRN (08:41)
[2022-10-20] MEDS: amLODIPine BESYLATE 10 MG TABLET (FP) PO SCH (10:14)
[2022-10-20] MEDS: FOLIC ACID 1 MG TABLET (FP) PO SCH (10:14)
[2022-10-20] MEDS: TAMSULOSIN HCL 0.4 MG CAP PO SCH (10:14)
[2022-10-20] MEDS: NICOTINE 14 MG/24 HOURS TOPICAL PATCH TD SCH (10:16)
[2022-10-20] MEDS: NICOTINE POLACRILEX 2 MG GUM BUC PRN (10:16)
[2022-10-20] MEDS: PRENATAL VITAMINS W/ FOLIC ACID TABLET (FP) PO SCH (10:39)
[2022-10-20] MEDS: BUDESONIDE/FORMETEROL FUMARATE 80/4.5 mcg INHALER IH SCH ×2 (10:41→22:30)
[2022-10-20 10:55] LABS: POTASSIUM 4.6 mmol/L (3.5-5.1)
[2022-10-20 10:55] LABS: HEMATOCRIT 39.3 % (35.4-49); HEMOGLOBIN 13.5 GM/dL (11.7-16.9); MCH 31.1 pg (25.7-33.7); MCHC 34.4 g/dl (32.0-35.9); MEAN CELL VOLUME 90.4 fl (80-96); MEAN PLT VOLUME 7.6 fl (7.5-11.1); PLATELET COUNT 379 10^3/uL (134-434); RBC 4.34 M/mm3 (4.00-5.60); RDW 16.3 % (11.9-15.9); WHITE BLOOD COUNT 9.9 K/mm3 (4.0-10.0)
[2022-10-20 11:02] LABS: ALBUMIN 3.5 g/dl (3.4-5.0); CALCIUM 9.5 mg/dL (8.5-10.1)
[2022-10-20 11:05] LABS: CREATININE 1.1 mg/dL (0.55-1.3)
[2022-10-20 11:06] LABS: BILIRUBIN,TOTAL 0.6 mg/dL (0.2-1)
[2022-10-20 11:07] LABS: TOT PROT 6.9 g/dl (6.4-8.2)
[2022-10-20] MEDS ORDERED: diazePAM 5 MG TABLET PO PRN (11:42)
[2022-10-20] MEDS: ASPIRIN 81 MG CHEWABLE TABLETS PO SCH (12:12)
[2022-10-20] MEDS ORDERED: METOPROLOL TARTRATE 25 MG TABLET (FP) PO ONE (14:02)
[2022-10-20] MEDS: INSULIN SLIDING SCALE (NOVOLOG) 1 VIAL SQ SCH ×2 (16:45→17:51)
[2022-10-20] MEDS: diazePAM 5 MG TABLET PO SCH ×2 (17:54→22:29)
[2022-10-20] MEDS: QUEtiapine FUMARATE 100 MG TABLET (FP) PO SCH (22:28)
[2022-10-20] MEDS: ATORVASTATIN CA 10 MG TABLET (FP) PO SCH (22:28)
[2022-10-21] MEDS: diazePAM 5 MG TABLET PO SCH ×4 (05:29→22:20)
[2022-10-21] MEDS: INSULIN SLIDING SCALE (NOVOLOG) 1 VIAL SQ SCH ×2 (06:55→17:29)
[2022-10-21] MEDS: IBUPROFEN 600 MG TABLET (FP) PO PRN ×2 (08:42→13:58)
[2022-10-21] MEDS: METHOCARBAMOL 500 MG TABLET PO PRN ×2 (08:42→13:58)
[2022-10-21] MEDS: TAMSULOSIN HCL 0.4 MG CAP PO SCH (08:43)
[2022-10-21] MEDS: BUDESONIDE/FORMETEROL FUMARATE 80/4.5 mcg INHALER IH SCH ×2 (10:17→22:21)
[2022-10-21] MEDS: amLODIPine BESYLATE 10 MG TABLET (FP) PO SCH (10:18)
[2022-10-21] MEDS: FOLIC ACID 1 MG TABLET (FP) PO SCH (10:18)
[2022-10-21] MEDS: ASPIRIN 81 MG CHEWABLE TABLETS PO SCH (10:18)
[2022-10-21] MEDS: NICOTINE 14 MG/24 HOURS TOPICAL PATCH TD SCH (10:19)
[2022-10-21] MEDS: PRENATAL VITAMINS W/ FOLIC ACID TABLET (FP) PO SCH (10:19)
[2022-10-21] MEDS ORDERED: cloNIDine HCL 0.1 MG TABLET PO ONE (15:45)
[2022-10-21] MEDS: ATORVASTATIN CA 10 MG TABLET (FP) PO SCH (22:21)
[2022-10-21] MEDS: QUEtiapine FUMARATE 100 MG TABLET (FP) PO SCH (22:21)
[2022-10-21] MEDS: THIAMINE HCL 100 MG TABLET (FP) PO SCH (22:21)
[2022-10-22] MEDS: diazePAM 5 MG TABLET PO SCH ×3 (05:47→22:16)
[2022-10-22] MEDS: INSULIN SLIDING SCALE (NOVOLOG) 1 VIAL SQ SCH ×2 (06:35→16:17)
[2022-10-22] MEDS: TAMSULOSIN HCL 0.4 MG CAP PO SCH (09:26)
[2022-10-22] MEDS: amLODIPine BESYLATE 10 MG TABLET (FP) PO SCH (10:02)
[2022-10-22] MEDS: METHOCARBAMOL 500 MG TABLET PO PRN ×2 (10:02→18:35)
[2022-10-22] MEDS: ASPIRIN 81 MG CHEWABLE TABLETS PO SCH (10:03)
[2022-10-22] MEDS: PRENATAL VITAMINS W/ FOLIC ACID TABLET (FP) PO SCH (10:03)
[2022-10-22] MEDS: BUDESONIDE/FORMETEROL FUMARATE 80/4.5 mcg INHALER IH SCH ×2 (10:03→22:16)
[2022-10-22] MEDS: FOLIC ACID 1 MG TABLET (FP) PO SCH (10:03)
[2022-10-22] MEDS: IBUPROFEN 600 MG TABLET (FP) PO PRN (10:05)
[2022-10-22] MEDS: NICOTINE 14 MG/24 HOURS TOPICAL PATCH TD SCH (10:05)
[2022-10-22] MEDS: THIAMINE HCL 100 MG TABLET (FP) PO SCH (22:15)
[2022-10-22] MEDS: ATORVASTATIN CA 10 MG TABLET (FP) PO SCH (22:15)
[2022-10-22] MEDS: QUEtiapine FUMARATE 100 MG TABLET (FP) PO SCH (22:15)
[2022-10-23] MEDS: diazePAM 5 MG TABLET PO SCH ×2 (05:37→17:23)
[2022-10-23] MEDS: INSULIN SLIDING SCALE (NOVOLOG) 1 VIAL SQ SCH ×2 (06:26→17:23)
[2022-10-23] MEDS: TAMSULOSIN HCL 0.4 MG CAP PO SCH (09:15)
[2022-10-23] MEDS: ASPIRIN 81 MG CHEWABLE TABLETS PO SCH (10:08)
[2022-10-23] MEDS: FOLIC ACID 1 MG TABLET (FP) PO SCH (10:08)
[2022-10-23] MEDS: amLODIPine BESYLATE 10 MG TABLET (FP) PO SCH (10:08)
[2022-10-23] MEDS: PRENATAL VITAMINS W/ FOLIC ACID TABLET (FP) PO SCH (10:09)
[2022-10-23] MEDS: NICOTINE 14 MG/24 HOURS TOPICAL PATCH TD SCH (10:09)
[2022-10-23] MEDS: BUDESONIDE/FORMETEROL FUMARATE 80/4.5 mcg INHALER IH SCH ×2 (10:09→22:17)
[2022-10-23] MEDS: IBUPROFEN 600 MG TABLET (FP) PO PRN (11:08)
[2022-10-23] MEDS ORDERED: cloNIDine HCL 0.1 MG TABLET PO ONE (12:34)
[2022-10-23] MEDS: NICOTINE POLACRILEX 2 MG GUM BUC PRN (17:24)
[2022-10-23 20:59] VITALS: RESP 18
[2022-10-23] MEDS: QUEtiapine FUMARATE 100 MG TABLET (FP) PO SCH (22:18)
[2022-10-23] MEDS: ATORVASTATIN CA 10 MG TABLET (FP) PO SCH (22:18)
[2022-10-23] MEDS: THIAMINE HCL 100 MG TABLET (FP) PO SCH (22:18)
[2022-10-24] MEDS ORDERED: diazePAM 5 MG TABLET PO ONE (06:00)
[2022-10-24] MEDS: INSULIN SLIDING SCALE (NOVOLOG) 1 VIAL SQ SCH (06:32)
[2022-10-24] MEDS: TAMSULOSIN HCL 0.4 MG CAP PO SCH (08:39)
[2022-10-24] MEDS: IBUPROFEN 600 MG TABLET (FP) PO PRN (08:39)
[2022-10-24] MEDS: ASPIRIN 81 MG CHEWABLE TABLETS PO SCH (09:35)
[2022-10-24] MEDS: FOLIC ACID 1 MG TABLET (FP) PO SCH (09:35)
[2022-10-24] MEDS: METHOCARBAMOL 500 MG TABLET PO PRN (09:35)
[2022-10-24] MEDS: amLODIPine BESYLATE 10 MG TABLET (FP) PO SCH (09:35)
[2022-10-24] MEDS: PRENATAL VITAMINS W/ FOLIC ACID TABLET (FP) PO SCH (09:36)
[2022-10-24] MEDS: NICOTINE 14 MG/24 HOURS TOPICAL PATCH TD SCH (09:36)
[2022-10-24] MEDS: BUDESONIDE/FORMETEROL FUMARATE 80/4.5 mcg INHALER IH SCH (09:37)
[2022-10-24 09:48] VITALS: PULSE 97
[2022-10-24 13:17] VITALS: BP 150/89; TEMP 98.3
== END 2022-10-24 13:31 | disposition home or self-care (01) | DRG 774 ==
LOC: YASAS 20:17 → Y6N 10-20 02:32
PROVIDERS: ADMIT Allergy & Immunology; ATTEND Allergy & Immunology
PROC: HZ2ZZZZ Detoxification Services for Substance Abuse Treatment (ICD-10-PCS; principal; 2022-10-20)
DX: F10.230 Alcohol dependence with withdrawal, uncomplicated (principal); F14.20 Cocaine dependence, uncomplicated; F12.20 Cannabis dependence, uncomplicated; F19.280 Other psychoactive substance dependence with psychoactive substance-induced anxiety disorder; F19.24 Other psychoactive substance dependence with psychoactive substance-induced mood disorder; F25.9 Schizoaffective disorder, unspecified; F31.9 Bipolar disorder, unspecified; F17.210 Nicotine dependence, cigarettes, uncomplicated; M17.12 Unilateral primary osteoarthritis, left knee; E78.5 Hyperlipidemia, unspecified; I10 Essential (primary) hypertension; G40.909 Epilepsy, unspecified, not intractable, without status epilepticus; J45.909 Unspecified asthma, uncomplicated; N40.0 Benign prostatic hyperplasia without lower urinary tract symptoms; R76.11 Nonspecific reaction to tuberculin skin test without active tuberculosis; R73.03 Prediabetes; Z88.0 Allergy status to penicillin; Z88.8 Allergy status to other drugs, medicaments and biological substances
CPT/HCPCS: 36415; 71046-TC-FY; 80053; 82962; 85027; 86780; 93005; 93010; C9803-CS; U0003; U0005